=== PATIENT | male | born 1935 | race Caucasian/White ===

== ENCOUNTER 2016-12-18 18:55 | Inpatient (IN) | payer MEDICARE, OTHER ==
[~2016-12-18] VITALS: Ht 180.3 cm; Wt 79.0 kg
--- NOTE | ~2016-12-18 | OR ---
PATIENT'S NAME: SAL MORENO [facility] AGE: 81 Y [address] ROOM: [place] [address] LOCATION: GPCU ADMIT DATE: 12/18/2016 OR/Procedure Report DISCHARGE DATE: FAMILY PHYSICIAN: José Antonio Perez MD ATTENDING PHYSICIAN: Alexander Triana SURGEON: Jairon Little DO [employer] COORDINATOR: DATE OF PROCEDURE: 12/19/2016 REFERRING PHYSICIAN: Dr. Dailey. PREOPERATIVE DIAGNOSIS: Syncope and second-degree heart block type 2. POSTOPERATIVE DIAGNOSIS: Syncope and second-degree heart block type 2. PROCEDURE: Insertion of dual-chamber permanent pacemaker via the left subclavian vein. BRIEF HISTORY: Mr. Moreno is an 81-year-old white male with the above-noted diagnosis. He had been brought to the operative suite today, sterilely prepped and draped in the usual fashion for insertion of his device. The left infraclavicular space was sterilely prepped and draped after initiation of adequate IV sedation. The patient was placed into a Trendelenburg position. The subclavian vein was accessed x2 and guidewires were placed under fluoroscopic guidance into the right atrium. An incision was created. Pocket was formed. Electrocautery was used for hemostasis. Guidewires were brought through the incision via sheath and dilator assembly, we placed our leads. We began with our ventricular lead. It is [employer] model 7742, serial #[id number]. This is placed in the floor of the right ventricle sensing R- waves of 5-8 with a voltage threshold of 0.4 V at 0.5 milliseconds with a pacing impedance of 810 ohms. By the end of the procedure, all R-waves were paced. We next placed our right atrial lead, it is a [employer] model 7741, serial #[id number]. It is placed in the right atrial appendage. Sensing P-waves were 3.5 with a measured threshold of 1.0 V at 0.5 milliseconds. Pacing impedance was 613 ohms. These leads were now connected to the generator, which is a [employer], model L111, serial #[id number]. Leads and generator were placed into the pocket. Appropriate sensing and pacing was noted. The patient tolerated the procedure well and was transferred to the recovery area in stable condition. JAIRON LITTLE DO PATIENT'S NAME: SAL MORENO [facility] AGE: 81 Y [address] ROOM: [place] [address] LOCATION: GPCU ADMIT DATE: 12/18/2016 OR/Procedure Report DISCHARGE DATE: FAMILY PHYSICIAN: José Antonio Perez MD ATTENDING PHYSICIAN: Alexander Triana/benjamin /[id number] d: 12/20/16 0856 t: 12/20/16 0951, OPERATIVE SUMMARY
--- NOTE | ~2016-12-18 | DS ---
PATIENT'S NAME: SAL RANDALL [facility] AGE: 81 Y [address] ROOM: [id number] [place], [place] [address] LOCATION: GPCU ADMIT DATE: 12/18/2016 Discharge Summary DISCHARGE DATE: 12/20/2016 FAMILY PHYSICIAN: José Antonio Perez MD ATTENDING PHYSICIAN: Alexander Triana This is an 81-year-old male with past medical history of gout, who was transferred from an outside facility to [facility] for syncopal episodes, which occurred in the last 24 hours. He was found to have second degree type 2 heart block that is symptomatic and Cardio and CT Surgery were consulted. He had a pacemaker placed on December 19, 2016. His troponins, CPK, and CK-MB were negative during this hospitalization. Status post his pacemaker placement on December 19, he had a repeat x-ray on the , which did not show pneumothorax. The left-sided pacemaker is stable, which was radiographically intact. At the time of discharge, the patient's son was concerned about the patient's mobility and mobilization in view of his recent pacemaker placement, PCOT was consulted. Of note, the patient had some leukocytosis on admission. UA was done and urine culture was performed and it showed E. coli that is pansensitive. Per CT Surgery, the patient was discharged on levofloxacin 500 mg everyday for a total of 5 days. The patient is to follow up with CT Surgery and Cardiology as scheduled, and PCP in 1 week. PHYSICAL EXAMINATION: At the time of discharge: VITAL SIGNS: He is afebrile. His pulses in the 70s. His respiratory rate is 16. His blood pressure is 130s to 140s, diastolic is 60s to 70s. He is saturating 94% on room air. GENERAL: He is alert, awake, oriented, and in no acute distress. HEART: His heart sounds are regular in rate and rhythm. No rubs or murmurs appreciated. LUNGS: Diminished, but clear. No crackles. No wheezing present. ABDOMEN: Nondistended. No guarding. No rigidity. Bowel sounds are normal. EXTREMITIES: No pedal edema bilaterally. NEUROLOGIC: Grossly intact. PSYCHIATRIC SILVA: He is alert, awake, and oriented. He appears to be able to make his own decisions. DISCHARGE MEDICATIONS: His discharge medications per CT Surgery includes: 1. Levofloxacin 500 mg daily for a total of 5 days. 2. He is also to continue his home medications otherwise. 3. He is also discharged on hydrocodone 1 to 2 tablets every 6 hours as needed. PATIENT'S NAME: SAL RANDALL [facility] AGE: 81 Y [address] ROOM: [place] [address] LOCATION: GPCU ADMIT DATE: 12/18/2016 Discharge Summary DISCHARGE DATE: 12/20/2016 FAMILY PHYSICIAN: José Antonio Perez MD ATTENDING PHYSICIAN: Alexander Triana MD LORRIE COHEN/benjamin /[id number] d: 12/21/16 0300 t: 12/23/16 1331, DISCHARGE SUMMARY
--- NOTE | ~2016-12-18 | HP ---
PATIENT'S NAME: SAL RANDALL [facility] AGE: 81 Y [address] ROOM: [place] [address] LOCATION: GPCU ADMIT DATE: 12/18/2016 History & Physical DISCHARGE DATE: FAMILY PHYSICIAN: PHYSICIAN, UNKNOWN ATTENDING PHYSICIAN: Alexander Triana DATE OF SERVICE: CHIEF COMPLAINT: Syncope with bradycardia. HISTORY OF PRESENTING ILLNESS: This 81-year-old white male with previous history of gout, who was transferred to [facility] from [place] after a couple of syncopal episodes, which occurred in the last 24 hours. Apparently, he fell once yesterday. He denies any associated prodrome and denies that he felt dizzy or lightheaded. He was seen by his primary care provider and recommended for therapy. He fell again today and was taken to the [place] [facility]. Preliminary evaluation there showed sinus bradycardia with heart rates consistently in the 40s. He did have some paroxysms of second-degree AV block, Mobitz type 2, with heart rates in the 30s. He has been normotensive throughout. He does complain of some chest pain on the right upper side. This developed after his first fall. He denies peyman chest pain and denies significant shortness of breath. He complains of feeling generally weak. He has not been eating well but can not specify. He denies any difficulties with chewing or swallowing. No abdominal pain or nausea. He has been stooling regularly but has not stooled in a couple of days. He voids freely and denies dysuria or urgency. No numbness or tingling in his extremities or any other associated physical or constitutional complaints. ALLERGIES: NO KNOWN DRUG ALLERGIES. ILLNESSES: 1. Hyperuricemia. 2. Gouty arthritis. 3. Gait instability. CURRENT MEDICATIONS: 1. Indomethacin 50 mg p.o. daily p.r.n. 2. Aspirin 325 mg p.o. daily. PATIENT'S NAME: SAL RANDALL [facility] AGE: 81 Y [address] ROOM: [place] [address] LOCATION: GPCU ADMIT DATE: 12/18/2016 History & Physical DISCHARGE DATE: FAMILY PHYSICIAN: PHYSICIAN, UNKNOWN ATTENDING PHYSICIAN: Alexander Triana FAMILY HISTORY: Negative for heart attack or stroke. SOCIAL HISTORY: He lives in [place]. He has a son who lives nearby and provide some social assistance. He has a past history of smoking approximately 50 pack years, but he has been quit for about 25 years. He drinks alcohol only occasionally. REVIEW OF SYSTEMS: As per HPI. All other organ systems reviewed and are negative. OBJECTIVE: VITAL SIGNS: Temperature 99.6, pulse 40, respirations 17, blood pressure 154/47, O2 saturation 95% on room air. GENERAL: He is disheveled. Demonstrates poor hygiene, lying on the examination table, in no acute distress. SKIN: Supple, pink, warm, dry. No obvious rashes. HEENT: Otherwise, normocephalic. Sclerae nonicteric. Pupils equal, round, and react to light and accommodation. Extraocular movements appear intact. Nasal turbinates normal in appearance. Oropharynx clear. Mucous membranes are pink and moist. NECK: Supple. Plethoric. No masses or adenopathy. No thyromegaly. No JVD. CHEST: Wall is symmetrical. HEART: Bradycardic. There are occasional extrasystoles. LUNGS: Diminished at the bases. No wheezes or crackles are heard. ABDOMEN: Soft, nontender. Bowel sounds present. No mass or hepatosplenomegaly. and RECTAL: Not done. EXTREMITIES: Display no significant clubbing, cyanosis, or edema. LABORATORY AND X-RAY DATA: A 12-lead EKG shows sinus bradycardia with right bundle branch block. CT scan of the head shows atrophy but no acute intracranial process. CBC showed a white blood cell count 8.81, hemoglobin 16.3, hematocrit 47, platelets 135. Chemistries revealed BUN and creatinine of 16 and 1.21 respectively, sodium and potassium 138 and 4.1, chloride and CO2 of 104 and 25.2, glucose 119. AST and ALT of 40 and 43, bilirubin is 1.5. Magnesium was 1.9. TSH was normal at 1.686. Cardiac enzymes revealed a troponin I of less than 0.02. Myoglobin of 93. CK-MB 0.5, CPK 64. ASSESSMENT AND PLAN: 1. Second-degree atrioventricular block, Mobitz type II. We will admit to inpatient care. He is currently hemodynamically stable. The case was discussed with Dr. Dailey. I also discussed with Dr. Shrestha, and we will tentatively plan for permanent pacemaker implantation tomorrow. We PATIENT'S NAME: SAL RANDALL [facility] AGE: 81 Y [address] ROOM: [facility] [place] [place] [address] LOCATION: [facility] ADMIT DATE: 12/18/2016 History & Physical DISCHARGE DATE: FAMILY PHYSICIAN: PHYSICIAN, UNKNOWN ATTENDING PHYSICIAN: Alexander Triana will monitor on telemetry tonight, provide supportive cares, and make adjustments if necessary. 2. Syncope, cardiogenic. We will make him bed rest. He is currently hemodynamically stable and will follow on telemetry as above. We will trend his cardiac enzymes. 3. Essential hypertension. Uncontrolled. We will monitor the trend but avoid aggressive management at least for now unless his systolic blood pressure trends over 170. 4. Gait instability with frequent falls. Difficult to characterize in light of problems second-degree atrioventricular block and syncope above. We will await echocardiography results and evaluate him once the decision has been made on permanent pacemaker implantation. 5. Deep venous thrombosis prophylaxis. We will hold off on heparin or Lovenox in light of the possibility of permanent pacemaker implantation tomorrow. MD QUINN RASMUSSEN/benjamin /[id number] D: 142 T: 854 HISTORY & PHYSICAL
[2016-12-18] MEDS ORDERED: INDOCIN50 MG PO (19:30)
[2016-12-18 20:41] LABS: CPK 78 IU/L (35-332)
[2016-12-18 21:03] LABS: INR - (THERAPEUTIC) 1.08 (0.92-1.07); PROTIME 11.3 SECONDS (9.8-11.4)
[2016-12-18 22:50] LABS: BILIRUBIN URINE NEGATIVE (NEGATIVE); BLOOD URINE 10 /UL (NEGATIVE); COLOR URINE YELLOW (YELLOW); GLUCOSE URINE NEGATIVE (NEGATIVE); KETONE URINE 5 mg/dL (NEGATIVE); LEUKOCYTES URINE 100 /UL (NEGATIVE); NITRITE URINE POSITIVE (NEGATIVE); PROTEIN URINE NEGATIVE (NEGATIVE); TURBIDITY URINE 1+ (CLEAR); UROBILINOGEN URINE 4 mg/dL (NORMAL)
[2016-12-18 23:06] LABS: RBC URINE 0-2 #/HPF (NEGATIVE)
[2016-12-18 23:07] LABS: BACTERIA URINE MANY (NEGATIVE)
[2016-12-19 02:39] LABS: BASOPHIL # 0.1 K/uL (0.0-0.2); BASOPHIL % 0.7 %; EOSINOPHIL # 0.3 K/uL (0.0-0.5); EOSINOPHIL % 2.2 %; HEMATOCRIT 43.9 % (33.0-50.0); HEMOGLOBIN 15.3 g/dL (11.0-16.0); IMMATURE GRANULOCYTE % 0.3 %; LYMPHOCYTE # 3.2 K/uL (0.8-4.0); LYMPHOCYTE % 26.1 %; MCHC 34.9 gm/dL (32.0-36.5); MCV 94.6 fl (83.0-98.0); MONOCYTE # 1.2 K/uL (0.0-1.0); MONOCYTE % 9.6 %; MPV 9.7 fl (9.4-12.4); NEUTROPHIL # (ANC) 7.6 K/uL (1.4-9.0); NEUTROPHIL % 61.1 %; NRBC % 0 /100WBC (0-0.00); PLATELET COUNT 133 K/uL (150-450); RBC 4.64 M/uL (3.50-5.50); RDW-CV 12.6 % (11.9-14.6); WBC 12.4 K/uL (4.0-11.0)
[2016-12-19 02:56] LABS: CPK 170 IU/L (35-332)
[2016-12-19 03:04] LABS: ALBUMIN 2.9 gm/dL (3.5-5.0); ANION GAP 12.1 (10.0-19.0); CALCIUM 8.4 mg/dL (8.5-10.5); MAGNESIUM 2.1 mg/dL (1.8-2.6); PHOSPHORUS 3.7 mg/dL (2.5-4.9); POTASSIUM 4.1 mMol/L (3.7-5.1)
[2016-12-19 09:24] LABS: CPK 282 IU/L (35-332)
[2016-12-20 03:55] LABS: BASOPHIL # 0.1 K/uL (0.0-0.2); BASOPHIL % 0.6 %; EOSINOPHIL # 0.2 K/uL (0.0-0.5); EOSINOPHIL % 2.2 %; HEMOGLOBIN 15.4 g/dL (11.0-16.0); IMMATURE GRANULOCYTE % 0.4 %; LYMPHOCYTE % 18.3 %; MCV 94.2 fl (83.0-98.0); MONOCYTE # 1.1 K/uL (0.0-1.0); MONOCYTE % 9.6 %; MPV 9.6 fl (9.4-12.4); NEUTROPHIL # (ANC) 7.5 K/uL (1.4-9.0); NEUTROPHIL % 68.9 %; NRBC % 0 /100WBC (0-0.00); PLATELET COUNT 117 K/uL (150-450); RBC 4.67 M/uL (3.50-5.50); RDW-CV 12.7 % (11.9-14.6); WBC 10.9 K/uL (4.0-11.0)
[2016-12-20 04:10] LABS: ALBUMIN 2.9 gm/dL (3.5-5.0); ANION GAP 11.5 (10.0-19.0); CALCIUM 8.4 mg/dL (8.5-10.5); CREATININE 0.9 mg/dL (0.6-1.3); POTASSIUM 4.5 mMol/L (3.7-5.1); TOTAL BILIRUBIN 1.5 mg/dL (0.0-1.5); TOTAL PROTEIN 6.7 g/dL (6.0-8.4)
[2016-12-20] MEDS ORDERED: LEVAQUIN500 MG PO (12:05)
[2016-12-20] MEDS ORDERED: NORCO 5-325 TA1 EACH PO (12:07)
[2016-12-20] MEDS ORDERED: INDOCIN50 MG PO (12:08)
== END 2016-12-20 16:10 | disposition disaster alternative care site (69) | DRG 243 ==
LOC: GPCU 18:55
PROVIDERS: Hospitalist; Thoracic Surgery (Cardiothoracic Vascular Surgery); ADMIT Family Medicine
PROC: 3E0102A Introduction of Anti-Infective Envelope into Subcutaneous Tissue, Open Approach (ICD-10-PCS; principal; 2016-12-19)
PROC: 02H63JZ Insertion of Pacemaker Lead into Right Atrium, Percutaneous Approach (ICD-10-PCS; principal; 2016-12-19)
PROC: 0JH606Z Insertion of Pacemaker, Dual Chamber into Chest Subcutaneous Tissue and Fascia, Open Approach (ICD-10-PCS; principal; 2016-12-19)
DX: I44.1 Atrioventricular block, second degree (principal); N39.0 Urinary tract infection, site not specified; D69.6 Thrombocytopenia, unspecified; M10.9 Gout, unspecified; R26.81 Unsteadiness on feet; R55 Syncope and collapse; Z79.82 Long term (current) use of aspirin; Z87.891 Personal history of nicotine dependence; I10 Essential (primary) hypertension; B96.20 Unspecified Escherichia coli [E. coli] as the cause of diseases classified elsewhere; W19.XXXA Unspecified fall, initial encounter
CPT/HCPCS: C1785; C1898; J0690; J0696; J7030; J7040; J7050